=== PATIENT | female | born 1975 | race Native Hawaiian/Other Pacific Islander ===

== ENCOUNTER 2016-10-21 14:37 | Outpatient (CLI) | payer OTHER ==
[~2016-10-21 14:37] MED LIST: ALPR0.2566 PO; TRAM50TA PO
== END 2016-10-21 19:22 | disposition home or self-care (01) ==
LOC: LABW 14:37
DX: Z79.01 Long term (current) use of anticoagulants (principal); Z51.81 Encounter for therapeutic drug level monitoring
CPT/HCPCS: 36415; 85610

== ENCOUNTER 2016-10-24 20:28 | Emergency (ER) | payer OTHER ==
[~2016-10-24] VITALS: Ht 175.3 cm; Wt 81.6 kg
[2016-10-24] MEDS ORDERED: WARF7.5T5 PO (20:55)
[2016-10-24 21:48] LABS: PLATELET COUNT 244 K/uL (152-353)
[2016-10-24 21:58] LABS: POTASSIUM 4.1 mmol/L (3.6-5.2); SODIUM 135 mmol/L (136-145)
[2016-10-24 23:25] VITALS: BP 108/78; TEMP 98.4
== END 2016-10-24 23:30 | disposition home or self-care (01) ==
LOC: ED 20:28
PROVIDERS: Emergency Medicine
DX: M54.5 Low back pain (principal); N83.291 Other ovarian cyst, right side
CPT/HCPCS: 36415; 80048; 81000; 81025; 85027; 96361; 96374; 99284; J2270

== ENCOUNTER 2016-10-29 16:28 | Outpatient (CLI) | payer OTHER ==
[~2016-10-29 16:28] MED LIST changes: +WARF7.5T5 PO
== END 2016-10-29 19:19 | disposition home or self-care (01) ==
LOC: LABW 16:28
DX: Z79.01 Long term (current) use of anticoagulants (principal); Z51.81 Encounter for therapeutic drug level monitoring
CPT/HCPCS: 36415; 85610

== ENCOUNTER 2016-11-05 14:28 | Outpatient (CLI) | payer OTHER | END 2016-11-05 23:01 | disposition home or self-care (01) | LOC: LABW 14:28 | DX: Z79.01 Long term (current) use of anticoagulants (principal); Z51.81 Encounter for therapeutic drug level monitoring | CPT/HCPCS: 36415; 85610 ==

== ENCOUNTER 2016-11-14 09:48 | Outpatient (CLI) | payer OTHER | END 2016-11-14 19:07 | disposition home or self-care (01) | LOC: LABW 09:48 | DX: Z79.01 Long term (current) use of anticoagulants (principal); Z51.81 Encounter for therapeutic drug level monitoring | CPT/HCPCS: 36415; 85610 ==

== ENCOUNTER 2016-11-21 16:24 | Outpatient (CLI) | payer OTHER | END 2016-11-21 22:09 | disposition home or self-care (01) | LOC: LABW 16:24 | DX: Z79.01 Long term (current) use of anticoagulants (principal); Z51.81 Encounter for therapeutic drug level monitoring | CPT/HCPCS: 36415; 85610 ==

== ENCOUNTER 2016-12-05 15:49 | Outpatient (CLI) | payer OTHER ==
[2016-12-05 16:29] LABS: POTASSIUM 3.9 mmol/L (3.6-5.2); SODIUM 136 mmol/L (136-145)
[2016-12-05 16:51] LABS: PLATELET COUNT 208 K/uL (152-353)
== END 2016-12-05 19:19 | disposition home or self-care (01) ==
LOC: RAD 15:49
PROVIDERS: Internal Medicine
DX: R42 Dizziness and giddiness (principal)
CPT/HCPCS: 36415; 80053; 81000; 85027

== ENCOUNTER 2016-12-24 11:51 | Outpatient (CLI) | payer OTHER | END 2016-12-24 19:44 | disposition home or self-care (01) | LOC: LABW 11:51 | DX: Z79.01 Long term (current) use of anticoagulants (principal); Z51.81 Encounter for therapeutic drug level monitoring | CPT/HCPCS: 36415; 85610 ==

== ENCOUNTER 2017-01-06 12:09 | Outpatient (CLI) | payer OTHER | END 2017-01-06 19:22 | disposition home or self-care (01) | LOC: RAD 12:09 | DX: M25.562 Pain in left knee (principal); M25.512 Pain in left shoulder; R53.83 Other fatigue; L65.8 Other specified nonscarring hair loss | CPT/HCPCS: 36415; 83036; 84402; 84403; 85651; 86039 ==

== ENCOUNTER 2017-02-04 13:59 | Outpatient (CLI) | payer OTHER | END 2017-02-04 19:15 | disposition home or self-care (01) | LOC: LABW 13:59 | DX: Z79.01 Long term (current) use of anticoagulants (principal); Z51.81 Encounter for therapeutic drug level monitoring | CPT/HCPCS: 36415; 85610 ==

== ENCOUNTER 2017-03-04 08:13 | Day surgery (SDC) | payer OTHER ==
[2017-03-03 11:40] LABS: PLATELET COUNT 206 K/uL (152-353)
[2017-03-03 11:44] LABS: POTASSIUM 4.8 mmol/L (3.6-5.2); SODIUM 142 mmol/L (136-145)
[2017-03-03 11:53] LABS: PARTIAL THROMBOPLASTIN TIME 27.8 SECONDS (24.5-33.6)
== END 2017-03-04 12:13 | disposition home or self-care (01) ==
LOC: OR 08:13
PROVIDERS: Student in an Organized Health Care Education/Training Program
PROC: 0DBK8ZZ Excision of Ascending Colon, Via Natural or Artificial Opening Endoscopic (ICD-10-PCS; principal; 2017-03-04)
PROC: 0DBP8ZZ Excision of Rectum, Via Natural or Artificial Opening Endoscopic (ICD-10-PCS; 2017-03-04)
DX: D12.2 Benign neoplasm of ascending colon (principal); K62.1 Rectal polyp; D12.8 Benign neoplasm of rectum; R10.84 Generalized abdominal pain; Z12.11 Encounter for screening for malignant neoplasm of colon
CPT/HCPCS: 36415; 80053; 81025; 85027; 85610; 85730; J2704

== ENCOUNTER 2017-03-13 11:29 | Outpatient (CLI) | payer OTHER | END 2017-03-13 19:48 | disposition home or self-care (01) | LOC: LABW 11:29 | DX: M79.645 Pain in left finger(s) (principal); Z79.01 Long term (current) use of anticoagulants; Z51.81 Encounter for therapeutic drug level monitoring | CPT/HCPCS: 36415; 85610 ==

== ENCOUNTER 2017-03-24 11:31 | Outpatient (CLI) | payer OTHER | END 2017-03-24 19:49 | disposition home or self-care (01) | LOC: LABW 11:31 | DX: Z79.01 Long term (current) use of anticoagulants (principal); Z51.81 Encounter for therapeutic drug level monitoring | CPT/HCPCS: 36415; 85610 ==

== ENCOUNTER 2017-04-18 21:05 | Emergency (ER) | payer OTHER ==
[~2017-04-18] VITALS: Ht 175.3 cm; Wt 129.7 kg
[2017-04-18 21:41] LABS: PLATELET COUNT 199 K/uL (152-353)
[2017-04-18 21:47] LABS: POTASSIUM 3.3 mmol/L (3.6-5.2); SODIUM 138 mmol/L (136-145)
[2017-04-18 21:59] LABS: PARTIAL THROMBOPLASTIN TIME 35.4 SECONDS (24.5-33.6)
[2017-04-18 23:30] VITALS: BP 112/53; TEMP 98.5
== END 2017-04-18 23:32 | disposition home or self-care (01) ==
LOC: ED 21:05
DX: M79.604 Pain in right leg (principal); R79.1 Abnormal coagulation profile; I82.501 Chronic embolism and thrombosis of unspecified deep veins of right lower extremity
CPT/HCPCS: 36415; 80053; 85027; 85610; 85730; 99283; Q9963

== ENCOUNTER 2017-04-30 21:11 | Emergency (ER) | payer OTHER ==
[~2017-04-30] VITALS: Ht 160 cm; Wt 84.4 kg
[2017-04-30] MEDS ORDERED: COUMADIN6 MG PO (21:30)
[2017-04-30] MEDS ORDERED: ASPIR-LOW81 MG PO (21:31)
[2017-04-30 22:25] VITALS: BP 126/84; TEMP 98.3
== END 2017-04-30 22:29 | disposition home or self-care (01) ==
LOC: ED 21:11
DX: K42.9 Umbilical hernia without obstruction or gangrene (principal); D68.69 Other thrombophilia
CPT/HCPCS: 36415; 85610; 99282

== ENCOUNTER 2017-05-04 09:52 | Outpatient (CLI) | payer OTHER ==
[~2017-05-04 09:52] MED LIST changes: +ASPIR-LOW81 MG PO; +COUMADIN6 MG PO
== END 2017-05-04 19:15 | disposition home or self-care (01) ==
LOC: LABW 09:52
DX: Z79.01 Long term (current) use of anticoagulants (principal); Z51.81 Encounter for therapeutic drug level monitoring
CPT/HCPCS: 36415; 85610

== ENCOUNTER 2017-05-06 07:11 | Emergency (ER) | payer OTHER ==
[~2017-05-06] VITALS: Ht 175.3 cm; Wt 84.4 kg
[2017-05-06 07:15] VITALS: TEMP 98.4
[2017-05-06 08:47] LABS: PLATELET COUNT 225 K/uL (152-353)
[2017-05-06 08:59] LABS: POTASSIUM 3.7 mmol/L (3.6-5.2); SODIUM 138 mmol/L (136-145)
[2017-05-06 09:00] VITALS: BP 106/58
== END 2017-05-06 09:30 | disposition home or self-care (01) ==
LOC: ED 07:11
PROVIDERS: Specialist
DX: R10.13 Epigastric pain (principal)
CPT/HCPCS: 36415; 80053; 81000; 83605; 85027; 87086; 87088; 96374; 99284; J2780

== ENCOUNTER 2017-05-06 09:41 | Day surgery (SDC) | payer OTHER ==
[~2017-05-06] VITALS: Ht 30.5 cm; Wt 0.5 kg
== END 2017-05-06 12:45 | disposition home or self-care (01) ==
LOC: OR 09:41
PROC: 0DJ08ZZ Inspection of Upper Intestinal Tract, Via Natural or Artificial Opening Endoscopic (ICD-10-PCS; principal; 2017-05-06)
DX: R10.13 Epigastric pain (principal); K29.60 Other gastritis without bleeding; K29.80 Duodenitis without bleeding
CPT/HCPCS: J2250; J2704; Q9963

== ENCOUNTER 2017-05-13 13:45 | Outpatient (CLI) | payer OTHER | END 2017-05-13 14:45 | disposition home or self-care (01) | LOC: LABW 13:45 | DX: Z79.01 Long term (current) use of anticoagulants (principal); Z51.81 Encounter for therapeutic drug level monitoring | CPT/HCPCS: 36415; 85610 ==

== ENCOUNTER 2017-05-18 14:38 | Emergency (ER) | payer OTHER ==
[~2017-05-18] VITALS: Ht 175.3 cm; Wt 84.4 kg
[2017-05-18 15:26] VITALS: BP 106/70; TEMP 98.4
== END 2017-05-18 16:04 | disposition home or self-care (01) ==
LOC: ED 14:38
DX: R21 Rash and other nonspecific skin eruption (principal); L50.8 Other urticaria
CPT/HCPCS: 96372; 99283; J2930; J3410

== ENCOUNTER 2017-07-15 09:26 | Day surgery (SDC) | payer OTHER ==
[~2017-07-15] VITALS: Ht 152.4 cm; Wt 68.0 kg
[2017-07-15 09:52] LABS: PLATELET COUNT 210 K/uL (152-353)
[2017-07-15 10:09] LABS: PARTIAL THROMBOPLASTIN TIME 28.5 SECONDS (24.5-33.6)
[2017-07-15 10:23] LABS: POTASSIUM 4.8 mmol/L (3.6-5.2); SODIUM 140 mmol/L (136-145)
== END 2017-07-15 16:05 | disposition home or self-care (01) ==
LOC: OR 09:26
PROVIDERS: Student in an Organized Health Care Education/Training Program
PROC: 0WQF0ZZ Repair Abdominal Wall, Open Approach (ICD-10-PCS; principal; 2017-07-15)
DX: K42.0 Umbilical hernia with obstruction, without gangrene (principal)
CPT/HCPCS: 36415; 80053; 81025; 85027; 85610; 85730; J0132; J0330; J0690; J1170; J2001; J2250; J2704; J2765; J3010; J3490; S0028

== ENCOUNTER 2017-09-28 15:06 | Emergency (ER) | payer OTHER ==
[~2017-09-28] VITALS: Ht 175.3 cm; Wt 86.2 kg
[2017-09-28 16:59] VITALS: BP 136/91; TEMP 99.1
== END 2017-09-28 17:00 | disposition home or self-care (01) ==
LOC: ED 15:06
DX: A69.1 Other Vincent's infections (principal); K02.9 Dental caries, unspecified
CPT/HCPCS: 99281

== ENCOUNTER 2017-11-11 11:49 | Outpatient (CLI) | payer OTHER | END 2017-11-11 19:05 | disposition home or self-care (01) | LOC: LABW 11:49 | DX: Z79.01 Long term (current) use of anticoagulants (principal); Z51.81 Encounter for therapeutic drug level monitoring; I26.99 Other pulmonary embolism without acute cor pulmonale | CPT/HCPCS: 36415; 85610 ==

== ENCOUNTER 2019-05-11 12:28 | Emergency (ER) | payer OTHER ==
[~2019-05-11] VITALS: Ht 175.3 cm; Wt 86.2 kg
[2019-05-11 12:40] VITALS: TEMP 97.9
[2019-05-11 14:02] VITALS: BP 102/68
== END 2019-05-11 14:02 | disposition home or self-care (01) ==
LOC: ED 12:28
DX: K04.7 Periapical abscess without sinus (principal); K02.9 Dental caries, unspecified
CPT/HCPCS: 99282